=== PATIENT | female | born 1985 ===

== ENCOUNTER 2017-12-27 03:29 | Emergency (ER) | payer MEDICAID ==
--- NOTE | 2017-12-27 03:41 | ED PDOC ---
Arrival/HPI - General Time Seen by Provider: 12/27/17 03:36 Historian: Patient - History of Present Illness Narrative History of Present Illness (Text): 12/27/17 03:41 Jasmyne Avendaño is a 32 year old female who presents to the Emergency department accompanied by friend status post allergic reaction. As per friend, they were sitting on a park bench smoking a cigarette when she developed sudden onset of lower lip swelling. Patient denies any history of allergies and denies any new diet changes. Patient denies any shortness of breath, wheezing, cough, headache, dizziness, or any other complaints. Time/Duration: Prior to Arrival Symptom Onset: Sudden Symptom Course: Unchanged Activities at Onset: Light Context: Sitting, Street Past Medical History - Provider Review Nursing Documentation Reviewed: Yes Family/Social History - Physician Review Nursing Documentation Reviewed: Yes Family/Social History: Unknown Family HX Allergies/Home Meds Allergies/Adverse Reactions: Allergies No Known Allergies Allergy (Verified 12/27/17 03:41) Home Medications: Home Meds Medication Instructions Recorded Confirmed Albuterol Sulfate [Ventolin Hfa] 1 puff IH PRN PRN 12/27/17 12/27/17 Review of Systems - Physician Review All systems were reviewed & negative as marked: Yes - Review of Systems Constitutional: Normal. absent: Fevers Eyes: Normal ENT: Other (+lower lip swelling) Respiratory: Normal. absent: SOB, Cough, Wheezing Cardiovascular: Normal. absent: Chest Pain Gastrointestinal: Normal. absent: Abdominal Pain, Diarrhea, Nausea, Vomiting Genitourinary Female: Normal. absent: Dysuria, Frequency, Hematuria, Urine Output Changes Musculoskeletal: Normal. absent: Back Pain, Neck Pain Skin: Normal. absent: Rash Neurological: Normal. absent: Headache, Dizziness Endocrine: Normal Hemo/Lymphatic: Normal Psychiatric: Normal Physical Exam Vital Signs Reviewed: Yes Temperature: Afebrile Blood Pressure: Normal Pulse: Regular Respiratory Rate: Normal Appearance: Positive for: Well-Appearing, Non-Toxic, Comfortable Pain Distress: None Mental Status: Positive for: Alert and Oriented X 3 - Systems Exam Head: Present: Atraumatic, Normocephalic Pupils: Present: PERRL Extroacular Muscles: Present: EOMI Conjunctiva: Present: Normal Mouth: Present: Moist Mucous Membranes. No: Normal Lips (Lower lip swelling, 1 blister noted to lower lip) Pharnyx: Present: Normal. No: ERYTHEMA, EXUDATE, TONSILS ENLARGED, Peritonsilar Swelling, Uvular Deviation, Muffled/Hoarse Voice, Strider, Soft Palate/Uvular Edema Neck: Present: Normal Range of Motion Respiratory/Chest: Present: Clear to Auscultation, Good Air Exchange. No: Respiratory Distress, Accessory Muscle Use Cardiovascular: Present: Regular Rate and Rhythm, Normal S1, S2. No: Murmurs Abdomen: No: Tenderness, Distention, Peritoneal Signs Back: Present: Normal Inspection Upper Extremity: Present: Normal Inspection. No: Cyanosis, Edema Lower Extremity: Present: Normal Inspection. No: Edema Neurological: Present: GCS=15, CN II-XII Intact, Speech Normal Skin: Present: Warm, Dry, Normal Color. No: Rashes Psychiatric: Present: Alert, Oriented x 3, Normal Insight, Normal Concentration Medical Decision Making ED Course and Treatment: 12/27/17 03:41 Impression: 32 year old female presents for an allergic reaction and lower lip swelling. Plan: -- Benadryl -- Solu-medrol -- Urine drug screen -- Reassess and disposition Progress Notes: 12/27/17 05:25 On re-evaluation, patient feels better and is in no acute distress. I have discussed the results and plan with the patient, who expresses understanding. Patient in agreement with plan to be discharged home. Patient is stable for discharge. Patient was instructed to follow up with physician or return if symptoms worsen or new concerning symptoms arise. - Lab Interpretations I have reviewed the lab results: Yes - Scribe Statement The provider has reviewed the documentation as recorded by the Ty Dupont Provider Scribe Attestation: All medical record entries made by the Scribe were at my direction and personally dictated by me. I have reviewed the chart and agree that the record accurately reflects my personal performance of the history, physical exam, medical decision making, and the department course for this patient. I have also personally directed, reviewed, and agree with the discharge instructions and disposition. Disposition/Present on Arrival - Present on Arrival Any Indicators Present on Arrival: No - Disposition Have Diagnosis and Disposition been Completed?: Yes Diagnosis: Allergic reaction Disposition: HOME/ ROUTINE Disposition Time: 05:25 Condition: GOOD Discharge Instructions (ExitCare): Briandaes (DC) Prescriptions: RX: predniSONE [predniSONE Tab] 20 mg PO TID #15 tab hydrOXYzine Pamoate [Vistaril] 25 mg PO QID #12 cap Referrals: Akua Baum [Primary Care Provider] - Follow up with primary Forms: [employer] ([place])
[2017-12-27] MEDS ORDERED: DiphenhydrAMINE 50 mg/ml Inj IVP ONE (03:43)
[2017-12-27 03:45] VITALS: RESP 17
[2017-12-27] MEDS ORDERED: Famotidine 20mg/50ml 20 MG/50 ML BAG IVPB STA (04:32)
[2017-12-27 05:04] LABS: BARBITURATES, UR NEGATIVE (NEGATIVE); BENZODIAZEPINES, UR NEGATIVE (NEGATIVE); OPIATES, UR NEGATIVE (NEGATIVE); PHENCYCLIDINE, UR POSITIVE (NEGATIVE)
[2017-12-27 05:26] VITALS: BP 138/78; PULSE 83; TEMP 98; O2SAT 100
== END 2017-12-27 05:30 | disposition home or self-care (01) ==
LOC: ED 03:29 → MERGE 03:29 → ED 05:30
DX: T78.49XA Other allergy, initial encounter (principal); X58.XXXA Exposure to other specified factors, initial encounter
CPT/HCPCS: 80324; 80345; 80346; 80349; 80353; 80358; 80361; 83992; 96374; 96375; 99283; J1200; J2930